=== PATIENT | male | born 1955 | race Caucasian/White ===

== ENCOUNTER 2020-11-20 06:20 | Observation (INO) ==
--- NOTE | 2020-11-04 08:19 | History & Physical Report ---
Date of Service November 04, 2020 date of surgery: 11/20/20 Procedure: Right Total Knee Arthroplasty Assessment & Plan (1) Arthritis of right knee: Further care discussed with patient and at this point in time has failed conservative measures and would like to proceed with a Right total knee replacement. Plan on discharge will be home with home health physical therapy. DVT prophylaxis with TEDs, SCDs and will also place on aspirin 81 mg p.o. b.i.d. for a month postop. Patient will have follow up appointment in our office two weeks post op for staple/suture removal and re-evaluation. Patient otherwise has no other questions or concerns. The risks and benefits have been discussed including, but not limited to, risk of infection, nerve injury, stiffness, loss of motion, failure to improve, etc. Reasonable outcomes and options of treatment were discussed. An explanation of appropriate alternatives to the procedure that may be advantageous were discussed and their risks and benefits, as well as the risks and benefits of not proceeding with treatment. I offered to answer any additional inquiries concerning the treatment involved. All the patient's questions were answered. The patient is agreeable, understanding of the treatment plan and alternatives, and wishes to proceed with the treatment plan. History of Present Illness Chief Complaint: Right knee pain Primary Care Provider: Charbel Lo is a 64 year old male who complains of Right knee pain, presents for pre- op evaluation prior to a right total knee replacement by dr Donald at [facility]. He complains of pain, decreased range of motion, instability and stiffness in his right knee. He states that the symptoms have been chronic and states that the symptoms are moderate-severe. The pain is described as aching, sharp and throbbing. The symptoms are aggravated by ascending stairs, daily activities, first steps while awake walking. Prior NSAIDs include Ibuprofen, Mobic and Aleve. He has been treated with previous Durolane injections in the past without much relief. he also had prior ACL reconstruction several years ago. Allergies Allergy/AdvReac Type Severity Reaction Status Date / Time No Known Allergies Verified 10/30/20 16:33 Home Medications Medication Instructions Recorded Confirmed Type cyanocobalamin (vitamin B-12) 1,000 mcg PO PM 04/22/20 10/30/20 History lisinopril 20 mg PO QAM 04/22/20 10/30/20 History meloxicam 7.5 mg PO QAM 04/22/20 10/30/20 History metformin 500 mg PO BID 04/22/20 10/30/20 History multivitamin 1 tab PO QAM 04/22/20 10/30/20 History omeprazole 20 mg PO PM 04/22/20 10/30/20 History Past Med/Surg History Medical History CPAP (continuous positive airway pressure) dependence PER PATIENT NO SLEEP APNEA DX, USES CPAP "TO KEEP SINUSES OPEN" Diabetes mellitus, type 2 GERD (gastroesophageal reflux disease) Hypertension Lyme disease hx - treated Fall 2019 Osteoarthritis Surgical History Fusion of spine C5-6. no ROM issues History of appendectomy History of arthroscopy ACL right History of carpal tunnel release right History of cataract surgery right History of colonoscopy History of esophagogastroduodenoscopy (EGD) History of tonsillectomy History of tooth extraction Hx of elbow surgery right Meniscal injury with repair right knee Family History Family/Other Diabetes Social History Smoking Status: Former smoker Smoking End Date: 1990; Second Hand Exposure: Yes (hx); Do You Dip or Chew Tobacco: No; Tobacco Cessation Education Requested by Patient: No Hx Alcohol Use: Yes Alcohol type: beer Hx Substance Use: No Preferred Language: [place] Communication Ability: Effective Manager Ambulatory Required: No Beliefs That Will Affect Care: None Current Living Situation: Spouse Other Information That Helps Us Care for You: No Feels Safe at Home: Yes Safety Concerns: Feels Safe At This Time Assistive Devices: Contacts, CPAP and Hearing Aid - Bilateral Assistive Devices Comment: right eye contact Review of Systems Review of Systems: All systems reviewed & are unremarkable except as noted in HPI & below Constitutional: no fever, no chills and no sweats Respiratory: no cough and no dyspnea Cardiovascular: no chest pain, no dyspnea and no orthopnea Gastrointestinal: no abdominal pain, no nausea and no vomiting Musculoskeletal: as per Subjective / HPI Physical Exam Physical Exam: Ht: 6ft 1in WT: 87.5kg Constitutional: WD/WN, vitals as above no acute distress Respiratory: normal respiratory effort, lungs clear to auscultation no respiratory distress, no labored breathing and does not use accessory muscles Cardiovascular: RRR, no murmur, no edema Gastrointestinal (Abdomen): normal bowel sounds, soft, nontender, no hepatosplenomegaly Musculoskeletal: Knee: + knee abnormal to inspection (Right Knee-), + effusion (+1 effusion), + surgical incision (well healed portals), + limited ROM of knee (ROM 0/3/110), + knee ROM with crepitation, + joint line tenderness (medial joint line) and + Jasen's sign positive; no deformity, no skin erythema, no ecchymosis, no valgus laxity, no varus laxity, anterior drawer test negative, Garry's sign negative and pivot shift test negative Results & Data Results & Data ([facility]) Diagnostic Findings Right Knee X-ray: Right knee series showing degenerative changes to the right knee, narrowing of the medial compartment and patello-femoral joint with patellar spurring noted, findings showing joint space narrowing of the medial compartment and patello- femoral joint, osteophyte formation and subchondral sclerosis noted. no acute bony pathology noted. s/p ACL reconstruction, endobutton in place.
--- NOTE | 2020-11-19 08:42 | Anesthesiology Consultation ---
Date of Service November 19, 2020 Assessment & Plan (1) Encounter for pre-operative examination: Patient seen in PAT 04/24/2020. Surgery was originally scheduled for May, the patient was diagnosed with acute Lyme disease and surgery was postponed. Per updated PAT head of training and development on 10/30/20, the only addition to his medical history has been the Lyme disease. Patient denies travel to endemic area, known exposure/sick contacts, or symptoms of COVID19. Preoperative COVID19 testing completed on 11/14 at [facility] [place] will obtain report. Chart Review Chart Review: Acceptable Risk for Surgery (pending updated labs) and aircrewman initiated History Surgery Operation Date: 11/20/20 08:55 Proposed Procedures p Right Total Knee Arthroplasty - Sam Donald DO Height/Weight Height: 6 ft 1 in Weight: 87.543 kg Allergies Allergy/AdvReac Type Severity Reaction Status Date / Time No Known Allergies Verified 11/20/20 06:41 Medications Home Medications Medication Instructions Recorded Confirmed Last Taken cyanocobalamin (vitamin B-12) 1,000 mcg PO PM 04/22/20 11/20/20 11/17/20 12:00 lisinopril 20 mg PO QAM 04/22/20 11/20/20 11/19/20 10:00 meloxicam 7.5 mg PO QAM 04/22/20 11/20/20 11/19/20 11:00 metformin 500 mg PO BID 04/22/20 11/20/20 11/19/20 17:00 multivitamin 1 tab PO QAM 04/22/20 11/20/20 11/13/20 10:00 omeprazole 20 mg PO PM 04/22/20 11/20/20 11/19/20 10:00 Active Medications Generic Name Dose Route Start Last Admin Trade Name Freq PRN Reason Stop Dose Admin Acetaminophen 1,000 mg 11/20/20 06:00 11/20/20 06:49 Acetaminophen 500 Mg Tab PO 11/20/20 18:00 1,000 mg PREOP ALEC Administration Celecoxib 200 mg 11/20/20 06:00 11/20/20 06:48 Celebrex 200 Mg Cap PO 11/20/20 18:00 200 mg PREOP ALEC Administration Dexamethasone 8 mg 11/20/20 06:00 11/20/20 06:49 Dexamethasone 4 Mg Tab PO 11/20/20 18:00 8 mg PREOP ALEC Administration Famotidine 20 mg 11/20/20 06:00 11/20/20 06:49 Famotidine 20 Mg Tab PO 11/20/20 18:00 20 mg PREOP ALEC Administration Gabapentin 600 mg 11/20/20 06:00 11/20/20 06:49 Gabapentin 600 Mg Dose PO 11/20/20 18:00 600 mg PREOP ALEC Administration Metoclopramide HCl 10 mg 11/20/20 06:00 11/20/20 06:49 Metoclopramide Hcl 10 Mg Tablet PO 11/20/20 18:00 10 mg PREOP ALEC Administration Past Medical History Medical History CPAP (continuous positive airway pressure) dependence PER PATIENT NO SLEEP APNEA DX, USES CPAP "TO KEEP SINUSES OPEN" Diabetes mellitus, type 2 GERD (gastroesophageal reflux disease) Hypertension Lyme disease hx - treated Fall 2019 Osteoarthritis Past Family History Family History Family/Other Diabetes Past Surgical History Surgical History Fusion of spine C5-6. no ROM issues History of appendectomy History of arthroscopy ACL right History of carpal tunnel release right History of cataract surgery right History of colonoscopy History of esophagogastroduodenoscopy (EGD) History of tonsillectomy History of tooth extraction Hx of elbow surgery right Meniscal injury with repair right knee Social History Smoking Status: Former smoker tobacco type: cigarettes Do You Dip or Chew Tobacco: No Smoking End Date: 1990 Hx Alcohol Use: Yes Alcohol type: beer alcohol intake frequency: a few times a month Hx Substance Use: No substance use type: does not use Physical Exam Vital Signs Last Vital Signs Temp 36.8 C 11/20/20 06:52 Pulse 67 11/20/20 06:52 Resp 18 11/20/20 06:52 BP 146/82 H 11/20/20 06:52 Pulse Ox 97 11/20/20 06:52 Testing Laboratory Results Blood Type O Positive 11/20/20 06:59 Antibody Screen NEGATIVE 11/20/20 06:59 11/20/20 06:40 POC Glucose 109 H Other Testing Electrocardiogram Date: 04/24/20 Findings: + NSR @ (77bpm) Chest X-Ray Date: 04/24/20 1. No active disease in the chest. 2. Vague right midlung zone opacity, statistically secondary to a summation
[~2020-11-20 06:20] MED LIST: ACETAMINOPHEN 500 MG TAB PO SCH; CeleBREX 200 MG CAP PO SCH; FAMOTIDINE 20 MG TAB PO SCH; GABAPENTIN 600 MG DOSE PO SCH; LR 500ML BOLUS, THEN 15ML/HR IV SCH; METOCLOPRAMIDE HCL 10 MG TABLET PO SCH; ROPIVACAINE 0.5% HCL/PF 150 MG, BUPIVACAINE 0.75% MPF 20 ML, EPINEPHrine 30MG/30ML (OR ... INSTIL SCH; TRANEXAMIC ACID 1,000 MG **IV Intra-op IV SCH; TRANEXAMIC ACID 1,000 MG **IV Pre-op IV SCH; ceFAZolin 2000MG 2,000 MG/15 ML SYR IV SCH; dexAMETHasone 4 MG TAB PO SCH
--- NOTE | 2020-11-20 07:10 | History & Physical Bridge Note ---
Date of Service November 20, 2020 History & Physical Bridge Note I have examined the patient, reviewed the History & Physical and in the interval since the performance of the History & Physical I have noted the following changes of clinical significance: no changes noted
[2020-11-20] MEDS ORDERED: EPINEPHrine INJ 1 MG/ML AMP ONE (07:22)
[2020-11-20] MEDS ORDERED: BUPIVACAINE 0.5 % 5 MG/1 ML PF 10ML VIAL ONE (07:23)
[2020-11-20] MEDS ORDERED: ROPIVACAINE 0.5% 5 MG/ML 30 ML VIAL ONE (07:23)
[2020-11-20] MEDS ORDERED: ePHEDrine sulfate 50 MG/ML AMP IV PRN (07:27)
[2020-11-20] MEDS ORDERED: ONDANSETRON INJ 2 MG/ML 2 ML VIAL IV PRN ×2 (07:27→13:07)
[2020-11-20] MEDS ORDERED: ATROPINE SULFATE 0.1 MG/ML 10ML SYR IV PRN (07:27)
[2020-11-20] MEDS ORDERED: MEPERIDINE HCL 25 MG/ML CARP/VIAL IV PRN (07:27)
[2020-11-20] MEDS ORDERED: HYDROmorphone INJ 1 MG/ML SYRINGE IV PRN ×2 (07:27→13:07)
[2020-11-20] MEDS ORDERED: fentaNYL citrate 100 MCG/2 ML VIAL IV PRN (07:27)
[2020-11-20] MEDS ORDERED: PHENYLEPHRINE 100MCG/ML 5ML SYR IV PRN (07:27)
[2020-11-20] MEDS ORDERED: LABETALOL HCL IV 5 MG/ML 20ML IV PRN (07:27)
[2020-11-20] MEDS ORDERED: MIDAZOLAM HCL 1 MG/ML 2ML VIAL ONE (07:51)
[2020-11-20] MEDS ORDERED: fentaNYL citrate 100 MCG/2 ML VIAL ONE (07:51)
[2020-11-20] MEDS ORDERED: BACITRACIN INJ 50,000 UNIT VIAL ONE (09:17)
[2020-11-20] MEDS ORDERED: ORTHO JOINT ANESTHETIC ONE (09:17)
[2020-11-20] MEDS ORDERED: ONDANSETRON INJ 2 MG/ML 2 ML VIAL ONE (10:00)
[2020-11-20] MEDS ORDERED: PROPOFOL IV EMULSION 10 MG/ML 20 ML VIAL IV ONE ×2 (10:00→10:44)
[2020-11-20] MEDS ORDERED: LIDOCAINE HCL 2% 2 ML VIAL/AMP(20MG/ML) INFIL ONE (10:00)
--- NOTE | 2020-11-20 11:09 | Operative Report ---
Post Operative Report Pre & Post Diagnosis Operation Date: 11/20/20 08:55 Pre-Op Diagnosis: Osteoarthritis, Right Knee Post-Op Diagnosis: Osteoarthritis, Right Knee I identified the patient and participated in the time-out.: Yes Procedure Operation Date: 11/20/20 08:55 Actual Procedures p Right Total Knee Arthroplasty, Cemented(Right) utilizing [employer] journey to nonblock total knee arthroplasty size 8 femur 6 tibia 9 polyethylene 32 oval patella-removal of tibial sided Endobutton Sam Donald DO Surgeon Sam Donald DO Vocational Director Thanh CRAIG Estimated Blood Loss 5 Findings Consistent with Post-Op Diagnosis Patient presents with severe end-stage tricompartmental degenerative joint disease of the right knee with [id number] subchondral sclerosis subchondral cystic changes history of a previous ACL reconstruction with Endobutton on tibia and femur [id number] change moderate to large Specimens Bone and cartilage Endobutton tibia Drains Medium bore Hemovac Anesthesia Type MAC Spinal Regional Complications none Disposition Accompanied Patient To Recovery: No Disposition: Recovery Room Indications Patient presents with ongoing complaints of pain about the right knee no response to conservative management patient failed attempted conservative management daily physical therapy anti-inflammatories relative rest activity modification had a previous ACL reconstruction presents after failing attempts at conservative management for right total knee arthroplasty above intraoperative findings noted Description of Procedure After proper prepping and draping of the Right lower extremity anterior midline incision was made over the region of the extensor extensor mechanism after meticulous hemostasis was obtained and maintained in subcutaneous tissues a medial parapatellar incision was made The patella was subluxed lateralward the medial lateral gutter were cleaned from any hypertrophic synovitis and scar tissue Endobutton on the tibial tunnel site was removed of the distal femoral block was placed and the distal femoral osteotomy cut was made subsequently the chamfers anterior and posterior osteotomy cuts were made utilizing the 4-in-1 block the tibia was subsequently subluxed anteriorward medial and ateral meniscal remnants were excised in their entirety remnants of the anterior and posterior cruciate ligaments were excised in their entirety excellent exposure of the proximal tibia was obtained the tibial osteotomy guide was placed on the proximal tibial osteotomy cut was made once again the knee was irrigated with copious amounts of sterile saline solution the patella was subsequently everted lateralward thickened scar tissue around the patella was removed the patella was subsequently cut utilizing a freehand technique and was drilled prepared for final preparation and placement of patella socially flexion-extension gaps were checked and the equal and symmetric trials were placed to the appropriate femoral and tibial trials with poly-spacer being placed for equal flexion and extension gaps and full range of motion including extension to 0 and flexion to 140 the trial components after having been taken to recovery range of motion was subsequently removed meticulous hemostasis was obtained and maintained subsequently a knee block injection of joint cocktail including ropivacaine 0.5% 150 mg. Bupivacaine 0.5% epinephrine 1-200,030 mL's toradol 30 mg dexamethasone 4 mg ketamine 10 mg clonidine 100 micrograms normal saline solution 30 mg was infiltrated into the soft tissues of the posterior knee medial lateral gutters and periosteal synovium special attention was paid to protect neurovascular structures at all times subsequently trial components having been removed the knee was irrigated with sterile saline solution. debris was removed the proximal tibia was subsequently prepared and was made ready for the placement of the tibial component tibial component was also cemented and tamped into position the femoral component was subsequently placed and cemented in the position the patellar component was subsequently cemented in position because hemostasis once again obtained and maintained wound having been thoroughly irrigated with debridement and debridement lavage was performed as well as a medial parapa tellar incision closed with #1 Vicryl in interrupted fashion subcutaneous was closed with #2 Vicryl skin was closed with skin clips. PA-C was necessary for prepping and drapping as well as wound closure of deep fascia Sub cutaneous tissue and skin and was necessary for the case. A sterile compressive dressing was placed patient was taken to recovery in stable condition of report dictated by Odilon I attest to the content of the Intraoperative Record and any orders documented therein. Any exceptions are noted below. I attest to the content of the Intraoperative Record and any orders documented therein. Any exceptions are noted below.
--- NOTE | 2020-11-20 12:17 | XRay Report ---
RIGHT KNEE 2 VIEWS History: Right total knee arthroplasty. Degenerative arthritis. Postop. FINDINGS: The patient is status post a right total knee arthroplasty. The hardware is intact. No frac ture or dislocation. Surgical drains are in place. IMPRESSION: Right total knee arthroplasty. No evidence for hardware complication. ACT 112: Negative or not required by law. Electronically signed by: Anand Ferrell M.D. 11/20/2020 12:16 PM
--- NOTE | 2020-11-20 12:42 | Anesthesiology Progress Note ---
Date of Service November 20, 2020 Anesthesia Post Procedure Vital Signs Vital Signs: Temp Pulse Pulse Resp BP Pulse Ox 11/20/20 12:30 36.4 C L 71 16 101/65 97 11/20/20 12:20 72 13 100/67 98 11/20/20 12:10 78 12 114/68 98 11/20/20 12:00 72 14 114/68 98 11/20/20 11:50 78 14 96/63 L 97 11/20/20 11:42 36.7 C 87 17 105/58 L 99 11/20/20 06:52 36.8 C 67 18 146/82 H 97 Transfer of Care Handoff Completed per policy Notes Mental Status: alert / awake / arousable Patient Amnestic to Procedure: Yes Nausea / Vomiting: adequately controlled Pain: adequately controlled Airway Patency, RR, SpO2: stable & adequate BP & HR: stable & adequate Hydration State: stable & adequate Neuraxial Anesthesia: was administered and sensory block is resolving Anesthetic Complications: no major complications apparent and Pt Satisfied with anesthetic care
[2020-11-20] MEDS ORDERED: bisacodyL 10 MG SUPP PR PRN (13:07)
[2020-11-20] MEDS ORDERED: METOCLOPRAMIDE HCL INJ 5 MG/ML 2 ML VIAL IV PRN (13:07)
[2020-11-20] MEDS ORDERED: NALOXONE HCL 0.4 MG/1 ML VIAL/CARP IV PRN (13:07)
[2020-11-20] MEDS ORDERED: diphenhydrAMINE Capsule 25 MG CAP PO PRN (13:07)
[2020-11-20] MEDS ORDERED: MAGNESIUM HYDROXIDE SUSP 30 ML UDC PO PRN (13:07)
[2020-11-20] MEDS ORDERED: PHARMACY GLYCEMIC MGMT CONSULT PRN (13:22)
[2020-11-20] MEDS ORDERED: GLUCOSE 10 TABS/TUBE PO PRN ×2 (13:30)
[2020-11-20] MEDS ORDERED: CARBOHYDRATES FOR HYPOGLYCEMIA PO PRN ×2 (13:30)
[2020-11-20] MEDS ORDERED: DEXTROSE 50% 50 ML SYRINGE IV PRN ×2 (13:30)
[2020-11-20] MEDS ORDERED: GLUCOSE 40% GEL 15 GM TUBE PO PRN ×2 (13:30)
[2020-11-20] MEDS ORDERED: GLUCAGON FOR INJ 1 MG VIAL IM PRN ×2 (13:30)
[2020-11-20] MEDS ORDERED: LANTUS PER UNIT CHARGE SQ ONE (13:30)
--- NOTE | 2020-11-20 13:32 | Pharmacy Report ---
Pharmacy Glycemic Short Note 2 - Date of Service November 20, 2020 - Glycemic Short BSG Results (Last 24 hours): 11/20/20 11/20/20 06:40 11:44 POC Glucose 109 H 132 H OUTPATIENT ANTIDIABETIC REGIMEN: * Metformin 500 mg PO BIDM * HbA1c: 5.8% (04/24/2020) ASSESSMENT: * SHANE is a 64 year old male POD #0 s/p right total knee arthroplasty * Received dexamethasone 8 mg PO x 1 + intra-articular ortho mix containing dexamethasone intraoperatively * Preop BSG of 109 mg/dL, postop BSG of 132 mg/dL * Will cover steroids with conservative one-time Lantus dose in light of excellent HbA1c PLAN FOR INPATIENT GLYCEMIC CONTROL: * Hold outpatient oral diabetes medications * Basal insulin * Lantus 10 units SQ x 1 * Bolus insulin * NovoLog per scale ACHS or Q6hrs while NPO * Goal Range: Low 110 mg/dL - High 140 mg/dL * Correction Factor: 25 mg/dL/unit * Nutritional / Prandial insulin per carb ratio of 1 unit per 8 grams CHO consumed PLAN FOR DISCHARGE: * HbA1c of 5.8% demonstrates excellent outpatient glycemic control * Continue outpatient metformin 500 mg PO BIDM
[2020-11-20] MEDS: SODIUM CHLORIDE 0.9% 1000ML 1,000 ML IV SCH (13:38)
[2020-11-20] MEDS: KETOROLAC TROMETHAMINE 15 MG/ML VIAL IV SCH ×2 (14:00→20:51)
[2020-11-20] MEDS: ACETAMINOPHEN 500 MG TAB PO SCH ×2 (14:01→21:14)
[2020-11-20] MEDS: INSULIN ASPART 100 UNITS/ML 3 ML PEN SC SCH ×3 (14:04→21:00)
[2020-11-20] MEDS: ceFAZolin 2000MG 2,000 MG/15 ML SYR IV SCH (17:31)
[2020-11-20] MEDS ORDERED: SENNA 8.6 MG TAB PO SCH (21:00)
[2020-11-20] MEDS ORDERED: CYANOCOBALAMIN 500 MCG TABLET (VITAMIN B-12) PO SCH (21:00)
[2020-11-20] MEDS ORDERED: PANTOprazole 40 MG TAB PO SCH (21:00)
[2020-11-20] MEDS: ASPIRIN 81 MG ECTAB PO SCH (21:14)
[2020-11-20] MEDS: DOCUSATE SODIUM 100 MG CAP PO SCH (21:14)
[2020-11-21] MEDS: SODIUM CHLORIDE 0.9% 1000ML 1,000 ML IV SCH (00:08)
[2020-11-21] MEDS: ceFAZolin 2000MG 2,000 MG/15 ML SYR IV SCH (01:14)
[2020-11-21] MEDS: KETOROLAC TROMETHAMINE 15 MG/ML VIAL IV SCH ×2 (01:14→07:55)
[2020-11-21] MEDS: oxyCODONE HCL IR 5 MG TAB (IMMEDIATE RELEASE) PO PRN ×3 (01:20→12:52)
[2020-11-21] MEDS: ACETAMINOPHEN 500 MG TAB PO SCH (05:51)
[2020-11-21 07:31] LABS: Hematocrit (blood only) 35.1 % (42-52); Hemoglobin 12.1 g/dL (14.0-18.0); Mean Corpuscular Hemoglobin 30.6 pg (25-34); Mean Corpuscular Hgb Conc 34.5 g/dL (32-36); Mean Corpuscular Volume 88.9 fL (80-100); Mean Platelet Volume 12.3 fL (7.4-10.4); Platelet Count 213 K/uL (130-400); RDW Standard Deviation 46.2 fL (36.4-46.3); Red Blood Count 3.95 M/uL (4.7-6.1); White Blood Count 12.21 K/uL (4.8-10.8)
[2020-11-21] MEDS: DOCUSATE SODIUM 100 MG CAP PO SCH (07:55)
[2020-11-21] MEDS: ASPIRIN 81 MG ECTAB PO SCH (07:55)
[2020-11-21 08:01] LABS: BUN Creatinine Ratio 21.5 (10-20); Calcium 8.4 mg/dl (8.5-10.1); Creatinine Clr Calc Pharmacy 96.4 ml/min; Est GFR (African American) 106.7; Est GFR (Non-African American) 92.1
[2020-11-21] MEDS: INSULIN ASPART 100 UNITS/ML 3 ML PEN SC SCH ×2 (08:48→12:26)
[2020-11-21] MEDS ORDERED: lisinopril 20 MG TAB PO SCH (09:00)
[2020-11-21] MEDS ORDERED: MULTIVITAMIN TAB PO SCH (09:00)
--- NOTE | 2020-11-21 10:56 | Orthopedic Progress Note ---
Date of Service November 21, 2020 Assessment & Plan (1) Arthritis of right knee: Postop day 1 PT/OT protocols. Weightbearing started. Patient progressing well with his physical therapy today. DC prophylaxis-aspirin p.o. twice daily, SCDs, MARK hurley. Pain management as written. Discharge planning-patient is planning for home health services upon discharge. Plan for dressing removal and drain removal by [facility] home health services tomorrow. Admission and Anticipated Discharge Date Admission Date: November 20, 2020 Subjective Postop day 1 Patient sitting up in bed awake and alert. No complaints this morning. Pain is controlled. He is hoping to go home today. He states his therapy went very well. Physical Exam Physical Exam: Dressings are clean, dry, and intact. Calves are soft nontender. Neurovascular is intact. Toes are mobile. He has good dorsiflexion and plantarflexion of the right foot. Hemovac drainage was 210 mL from the previous shift. Results & Data ([facility]) Vital Signs (Past 12 Hours) Vital Signs Temp Pulse Resp BP Pulse Ox 11/21/20 07:36 36.6 C 61 16 125/81 99 11/21/20 04:07 36.8 C 68 16 109/65 97 11/21/20 00:01 36.7 C 68 16 128/71 98 Laboratory Results Laboratory Results WBC 12.21 K/uL (4.8-10.8) H 11/21/20 06:43 RBC 3.95 M/uL (4.7-6.1) L 11/21/20 06:43 Hgb 12.1 g/dL (14.0-18.0) L 11/21/20 06:43 Hct 35.1 % (42-52) L 11/21/20 06:43 MCV 88.9 fL (80-100) 11/21/20 06:43 MCH 30.6 pg (25-34) 11/21/20 06:43 MCHC 34.5 g/dL (32-36) 11/21/20 06:43 RDW Std Deviation 46.2 fL (36.4-46.3) 11/21/20 06:43 RDW Coeff of Sarah 14.0 % (11.5-14.5) 11/21/20 06:43 Plt Count 213 K/uL (130-400) 11/21/20 06:43 MPV 12.3 fL (7.4-10.4) H 11/21/20 06:43 Sodium 139 mmol/L (136-145) 11/21/20 06:43 Potassium 4.0 mmol/L (3.5-5.1) 11/21/20 06:43 Chloride 110 mmol/L (98-107) H 11/21/20 06:43 Carbon Dioxide 24 mmol/L (21-32) 11/21/20 06:43 Anion Gap 5.0 (3-11) 11/21/20 06:43 BUN 18 mg/dl (7-18) 11/21/20 06:43 Creatinine 0.85 mg/dl (0.6-1.4) 11/21/20 06:43 Est Cr Clr Drug Dosing 96.4 ml/min 11/21/20 06:43 Est GFR ( Amer) 106.7 11/21/20 06:43 Est GFR (Non-Af Amer) 92.1 11/21/20 06:43 BUN/Creatinine Ratio 21.5 (10-20) H 11/21/20 06:43 Glucose 99 mg/dl (70-99) 11/21/20 06:43 POC Glucose 109 mg/dl (70-99) H 11/21/20 08:05 Calcium 8.4 mg/dl (8.5-10.1) L 11/21/20 06:43 Hepatitis C Ab Screen Neg (Neg) 11/20/20 07:05 Blood Type O Positive 11/20/20 06:59 Antibody Screen NEGATIVE 11/20/20 06:59 Impressions Knee X-Ray 11/20/20 11:53 RIGHT KNEE 2 VIEWS History: Right total knee arthroplasty. Degenerative arthritis. Postop. FINDINGS: The patient is status post a right total knee arthroplasty. The hardware is intact. No fracture or dislocation. Surgical drains are in place. IMPRESSION: Right total knee arthroplasty. No evidence for hardware complication. ACT 112: Negative or not required by law. Electronically signed by: Anand Ferrell M.D. 11/20/2020 12:16 PM
[2020-11-21] MEDS ORDERED: metFORMIN HCL 500 MG TAB PO SCH (17:00)
[2020-11-21] MEDS ORDERED: CeleBREX 200 MG CAP PO SCH (21:00)
--- NOTE | 2020-11-25 07:45 | Discharge Summary ---
Date of Service date of discharge: November 21, 2020 date of admission: 11/20/20 Admission HPI Per Admitting Provider Wally is a 64 year old male who complains of Right knee pain, presents for pre- op evaluation prior to a right total knee replacement by dr Donald at [facility]. He complains of pain, decreased range of motion, instability and stiffness in his right knee. He states that the symptoms have been chronic and states that the symptoms are moderate-severe. The pain is described as aching, sharp and throbbing. The symptoms are aggravated by ascending stairs, daily activities, first steps while awake walking. Prior NSAIDs include Ibuprofen, Mobic and Aleve. He has been treated with previous Durolane injections in the past without much relief. he also had prior ACL reconstruction several years ago. Principal Diagnosis right knee arthritis Discharge Exam Constitutional WD/WN, vitals as above no acute distress Musculoskeletal Right knee: NVDI, calf SNT, negative misa sign. DP palpable, able to wiggle toes/ankle movement without difficulty. Prinea dressing clean dry and intact. expected post-operative bruising noted. Discharge Data Allergies Allergy/AdvReac Type Severity Reaction Status Date / Time No Known Allergies Verified 11/20/20 06:41 Procedures Performed Operation Date: 11/20/20 08:55 Actual Procedures p Right Total Knee Arthroplasty, Cemented(Right) - Sam Donald, Ordered Studies 11/20/20 05:00 US - OR guided needle placemen Routine Hospital Course (1) Arthritis of right knee: Postop day 1 PT/OT protocols. Weightbearing started. Patient progressing well with his physical therapy today. DC prophylaxis-aspirin p.o. twice daily, SCDs, MARK hurley. Pain management as written. Discharge planning-patient is planning for home health services upon discharge. Plan for dressing removal and drain removal by [facility] health services tomorrow. Total Time Total Time Spent Total Time Spent (In Minutes): 20 Total Time Includes: Examination of the Patient, Discharge Planning and Medication Reconciliation Discharge Plan Discharge Items Patient Disposition: Home - Home Health Services Reason For Visit: Osteoarthritis, Right Knee Discharge Diagnosis: Right total knee replacement Activity: Per Instructions section Weightbearing: Right weightbearing Weightbearing Comment: As tolerated with walker Non-emergency contact: Surgeon Call non-emergency contact if: you have any medication questions, your pain is concerning for you, you have a fever, your temperature is above 101, your wound has increased redness, your wound has increased drainage and your wound pain has increased Follow-up/Referrals: Charbel Rosenthal DO [Primary Care Provider] - Diet: Carb Consistent or DM2 Addtl Attending Provider Instructions: ACTIVITY RECOMMENDATIONS: SELF CARE INSTRUCTIONS AFTER TOTAL KNEE REPLACEMENT A. You may need to continue a physical therapy program after discharge from the hospital. There are several options available to you. Your doctor will assist you in selecting the best one for you. 1. An out-patient facility 2 to 3 times a week for therapy or home therapy. 2. Continue working on all exercises taught to you in the hospital. Your goals should be to increase bending of your knee to 90 degrees and beyond and to fully straighten your knee. B. You may progress at your own pace from walking with a walker or crutches to a cane; then to no assistive devices. C. Make walking a part of your daily routine. Be up as much as comfortable with rest periods throughout the day. Rest with leg elevation is very important. Use the ice wrap frequently for the first 3-4 weeks. D. There are no restrictions on activities. You may ride in a car, shop, participate in speeder hand and all social activities. E. Wear the long elastic stockings (MARK hose) 20 hours a day for 2 weeks after surgery. They can be removed several times a day for laundering and for a bath. F. You may shower, no tub baths until cleared by your doctor. SPECIAL CARE INSTRUCTIONS: VERY IMPORTANT TO READ AND REVIEW A. There are a few signs you need to watch for after you are home. Call [facility] if you notice any of the followin. Increased severe knee pain. Some pain is expected especially when you exercise. 2. Increased swelling in your leg or knee; pain or swelling of the calf muscle in either lower leg. 3. Any fluid drainage from the incision. 4. Shortness of breath or chest pain. B. Please call [facility] at if you have any concerns or questions about your operation or recovery. The doctor or his nurse will return your call promptly. C. You must take antibiotics before dental work, bladder, bowel or other surgery. Your doctor will provide you with a permanent care to carry describing this precaution. IMPORTANT: * REMEMBER TO TAKE ASPIRIN, 81 MG, TWICE DAILY FOR 4 WEEKS UNLESS OTHERWISE DIRECTED. THIS IS YOUR BLOOD THINNER. * HIGH RISK PATIENTS MAY BE PRESCRIBED A STRONGER BLOOD THINNER. THIS WILL BE PROVIDED AT DISCHARGE. * CALL IF INCREASED PAIN, REDNESS, DRAINAGE OR FEVER GREATER THAT 101. * WEAR MARK HOSE 20 HOURS PER DAY FOR 2 WEEKS. * DERMABOND Prineo- This is a mesh tape dressing that is covered with glue. It should remain in place until the incision is properly healed, usually 10-14 days. This dressing is designed to naturally slough off. You may trim the excess mesh tape as it peels off. Incision may be briefly wet in a shower. Dry immediately by blotting with a clean, dry towel. Do not bath or swim until instructed by your doctor. Do not scratch, rub, or pick at the dressing. Do not apply any topical ointments or lotions until dressing is completely removed and/or instructed by your doctor. There may be a small piece of suture material at one end of your incision. Do not pull or trim this. If it is bothersome or catching on clothing, you may cover it with a band-aid. IF INCISION IS LEAKING THROUGH DRESSING, CALL THE OFFICE . FOLLOW UP VISIT: If appointment is not already scheduled: Please call [facility] to make a follow-up appointment for 2 weeks after your surgery at . Stand-Alone Forms: My [facility] [employer], Smoking Cessation Medications and DC Order Prescriptions: New celecoxib [Celebrex] 200 mg Capsule 200 mg PO BID 30 Days Qty: 60 RF: 0 aspirin 81 mg Tablet,Delayed Release (Dr/Ec) 81 mg PO BID 30 Days Qty: 60 RF: 0 acetaminophen 500 mg Tablet 1,000 mg PO Q8 21 Days Qty: 126 RF: 0 oxycodone 5 mg Tablet 5 - 10 mg PO Q6H PRN (Reason: pain) Qty: 30 RF: 0 docusate sodium 100 mg Capsule 100 mg PO BID 10 Days Qty: 20 RF: 0 cefadroxil 500 mg capsule 500 mg PO BID 7 Days Qty: 14 RF: 0 Continued multivitamin Tablet 1 tab PO QAM RF: 0 metformin 500 mg Tablet 500 mg PO BID RF: 0 lisinopril 20 mg Tablet 20 mg PO QAM RF: 0 cyanocobalamin (vitamin B-12) 1,000 mcg Tablet 1,000 mcg PO PM RF: 0 omeprazole 20 mg Tablet,Delayed Release (Dr/Ec) 20 mg PO PM RF: 0 Discontinued meloxicam 7.5 mg Tablet 7.5 mg PO QAM RF: 0 Discharge Orders: Discharge Order (Routine); Ordered 11/21/20 Ordered By: Mukesh Hernandez Admission Data Admit Date/Time: 11/20/20 11:53 Attending Provider: Sam Donald Admit Provider: Sam Donald Primary Care Provider: Charbel Rosenthal Other Interventions: Discharge Summary Assessment (RN) Last Done: 11/21/20 11:22
== END 2020-11-21 13:42 | disposition home health service (06) ==
LOC: ASU 06:20 → 3E 06:20